=== PATIENT | male | born 1965 | race Caucasian/White ===

== ENCOUNTER 2023-06-14 18:48 | Inpatient (IN) | payer MEDICARE, OTHER ==
[~2023-06-14] VITALS: Ht 177.8 cm; Wt 98.0 kg
[2023-06-14] MEDS ORDERED: INSU100I26 SQ (20:24)
[2023-06-14] MEDS ORDERED: LEVO88TA5 PO (20:24)
[2023-06-14] MEDS ORDERED: BENZ1TAB7 PO (20:24)
[2023-06-14] MEDS ORDERED: GLIM4TAB37 PO (20:24)
[2023-06-14] MEDS ORDERED: FURO20TA4 PO (20:24)
[2023-06-14] MEDS ORDERED: ALLO300T2 PO (20:24)
[2023-06-14] MEDS ORDERED: METF-442 PO (20:24)
[2023-06-14] MEDS ORDERED: ENAL5TAB21 PO (20:24)
[2023-06-14] MEDS ORDERED: DOCU100T2 PO (20:24)
[2023-06-14] MEDS ORDERED: SPIR25TA6 PO (20:24)
[2023-06-14] MEDS ORDERED: DIVA-78 PO (20:24)
[2023-06-14] MEDS ORDERED: ATOR40TA PO (20:24)
[2023-06-14] MEDS ORDERED: CHOL100045 PO (20:24)
[2023-06-14] MEDS ORDERED: POLY17PO4 PO (20:24)
[2023-06-14] MEDS ORDERED: EMPA10TA PO (20:24)
[2023-06-14] MEDS ORDERED: ALBU6.7H9 IH (20:24)
[2023-06-14] MEDS ORDERED: EMPA25TA PO (20:24)
[2023-06-14 21:02] LABS: BASOPHILS % (AUTO) 0.3 % (0.0-2.0); EOSINOPHILS # (AUTO) 0.1 K/uL (0.0-0.7); EOSINOPHILS % (AUTO) 1.3 % (0.0-7.0); HEMATOCRIT 44.5 % (36.7-47.1); HEMOGLOBIN 15.2 g/dL (12.5-16.3); LYMPHOCYTES # (AUTO) 3.4 K/uL (0.8-4.8); LYMPHOCYTES % (AUTO) 33.8 % (20.5-51.5); MEAN CORPUSCULAR HEMOGLOBIN 30.2 uug (23.8-33.4); MEAN CORPUSCULAR HGB CONC 34 g/dL (32.5-36.3); MEAN CORPUSCULAR VOLUME 88.6 fL (73.0-96.2); MONOCYTES # (AUTO) 0.5 K/uL (0.1-1.30); MONOCYTES % (AUTO) 5.1 % (0.0-11.0); NEUTROPHILS % (AUTO) 59.5 % (38.5-71.5); PLATELET COUNT (AUTO) 211 K/uL (152-348); RED BLOOD CELL COUNT(AUTO) 5.02 MIL/uL (4.06-5.63); RED CELL DISTRIBUTION WIDTH 13.5 % (12.1-16.2); WHITE BLOOD COUNT (AUTO) 10.1 K/uL (3.6-10.2)
[2023-06-14 21:21] LABS: DIFFERENTIAL COMMENT 1
[2023-06-14 21:22] LABS: CALCIUM 9.4 mg/dL (8.5-10.1); CARBON DIOXIDE 27 mmol/L (21-32); CHLORIDE 103 mmol/L (98-107); CREATININE 0.8 mg/dL (0.6-1.3); GLUCOSE 168 mg/dL (74-106); POTASSIUM 3.6 mmol/L (3.5-5.1); SODIUM SERUM 139 mmol/L (136-145); UREA NITROGEN, BLOOD 14 mg/dL (7-18)
[2023-06-14 21:24] LABS: ETHANOL < 3 MG/DL (0-10)
[2023-06-14 21:34] LABS: ALANINE AMINOTRANSFERASE 23 U/L (16-63); ALBUMIN 3.6 g/dL (3.4-5.0); ALKALINE PHOSPHATASE 86 U/L (50-136); ASPARTATE AMINOTRANSFERASE < 5 U/L (15-37); BILIRUBIN,TOTAL 0.2 mg/dL (0.2-1.0); TOTAL PROTEIN, SERUM 6.7 g/dL (6.4-8.2)
[2023-06-14 21:35] LABS: ACETAMINOPHEN < 10.0 ug/mL (10-30)
[2023-06-14 23:57] LABS: *BILIRUBIN,URIN NEGATIVE (NEGATIVE); *BLOOD, URINE NEGATIVE (NEGATIVE); *CLARITY,URINE CLEAR (CLEAR); *COLOR,URINE YELLOW (YELLOW); *KETONES,URINE NEGATIVE (NEGATIVE); *PROTEIN,URINE NEGATIVE (NEGATIVE); *UROBILINOGEN,URINE 0.2 E.U./dl (NORMAL); LEUKOCYTE ESTERASE ,URINE NEGATIVE (NEGATIVE); NITRITE, URINE NEGATIVE (NEGATIVE)
[2023-06-15 00:02] LABS: *AMPHETAMINE, URINE NEGATIVE (NEGATIVE); *BARBITURATE, URINE NEGATIVE (NEGATIVE); *BENZODIAZEPINE, URINE NEGATIVE (NEGATIVE); *CANNABINOID, URINE NEGATIVE (NEGATIVE); *COCCAINE, URINE NEGATIVE (NEGATIVE); *OPIATE, URINE NEGATIVE (NEGATIVE); *PHENCYCLIDINE SCREEN,URINE NEGATIVE (NEGATIVE)
[2023-06-15 00:07] LABS: UGLUCOSE 2+ (NEGATIVE)
[2023-06-15 00:08] LABS: FENTANYL, URINE NEGATIVE (NEGATIVE)
[2023-06-15 01:06] LABS: BACTERIA,URINE FEW /HPF (NONE SEEN); RBC,URINE NONE SEEN /HPF (0-3); WBC,URINE NONE SEEN /HPF (0-3)
[2023-06-15 01:07] LABS: SQUAMOUS EPITHELIAL CELL,UR FEW /HPF (NONE SEEN)
[2023-06-15 01:10] VITALS: BP 122/77; TEMP 97.9; O2SAT 97
[2023-06-15] MEDS ORDERED: MAGNESIUM HYDROXIDE 30 ML LIQUID UDC PO PRN (03:00)
[2023-06-15] MEDS ORDERED: ACETAMINOPHEN 325 MG TABLET PO PRN (03:00)
[2023-06-15] MEDS ORDERED: MAG HYDROX/AL HYDROX/SIMETH 30 ML LIQUID UDC PO PRN (03:00)
[2023-06-15] MEDS ORDERED: LORAZEPAM 2 MG/1 ML VIAL IM STA (06:23)
[2023-06-15] MEDS ORDERED: diphenhydrAMINE 50 MG/1 ML VIAL IM STA (06:23)
[2023-06-15] MEDS ORDERED: HALOPERIDOL LACTATE 5 MG/1 ML VIAL IM STA (06:23)
[2023-06-15 08:06] VITALS: BP 118/66; TEMP 98.4; O2SAT 95
[2023-06-15 15:13] VITALS: BP 130/72; TEMP 98.5; O2SAT 100
[2023-06-15] MEDS ORDERED: MIRALAX 17 GM POWD.PACK PO PRN (17:45)
[2023-06-15] MEDS ORDERED: ALBUTEROL SULFATE 8 GM HFA.AER.AD IH PRN (17:45)
[2023-06-15] MEDS ORDERED: DEXTROSE 50% 50 ML DISP.SYRIN IV PRN (18:00)
[2023-06-15] MEDS ORDERED: ALBUTEROL SULFATE 2.5 MG/3 ML NEBU NEB PRN (19:00)
[2023-06-15] MEDS: GLIMEPIRIDE 4 MG TABLET PO SCH (19:10)
[2023-06-15] MEDS: METFORMIN HCL 500 MG TABLET PO SCH (19:10)
[2023-06-15 20:00] VITALS: BP 113/85; TEMP 98.1; O2SAT 99
[2023-06-15] MEDS: BLOOD SUGAR DIAGNOSTIC 1 EACH STRIP VI SCH (20:26)
[2023-06-15] MEDS: DIVALPROEX 500 MG TABLET.DR PO SCH (20:27)
[2023-06-15] MEDS: DOCUSATE SODIUM 100 MG CAPSULE PO SCH (20:27)
[2023-06-15] MEDS: INSULIN REGULAR, HUMAN 300 UNIT/3 ML VIAL SQ PRN (20:31)
[2023-06-15] MEDS ORDERED: ATORVASTATIN 40 MG TABLET PO SCH (21:00)
[2023-06-16] MEDS: LEVOTHYROXINE SODIUM 88 MCG TABLET PO SCH (06:08)
[2023-06-16] MEDS: BLOOD SUGAR DIAGNOSTIC 1 EACH STRIP VI SCH ×4 (06:23→20:18)
[2023-06-16] MEDS: FUROSEMIDE 20 MG TABLET PO SCH ×2 (08:19→16:52)
[2023-06-16] MEDS: METFORMIN HCL 500 MG TABLET PO SCH ×2 (08:19→17:10)
[2023-06-16] MEDS: ARIPIPRAZOLE 10 MG TABLET PO SCH (08:19)
[2023-06-16] MEDS: INSULIN REGULAR, HUMAN 300 UNIT/3 ML VIAL SQ PRN ×3 (08:22→20:21)
[2023-06-16] MEDS: GLIMEPIRIDE 4 MG TABLET PO SCH ×2 (08:24→16:52)
[2023-06-16] MEDS: ENALAPRIL 5 MG TABLET PO SCH (08:24)
[2023-06-16] MEDS: ALLOPURINOL 300 MG TABLET PO SCH (08:24)
[2023-06-16] MEDS: SPIRONOLACTONE 50 MG TABLET PO SCH (08:26)
[2023-06-16 08:39] LABS: BASOPHILS % (AUTO) 0.2 % (0.0-2.0); EOSINOPHILS # (AUTO) 0.1 K/uL (0.0-0.7); EOSINOPHILS % (AUTO) 1.3 % (0.0-7.0); HEMATOCRIT 47.8 % (36.7-47.1); HEMOGLOBIN 15.9 g/dL (12.5-16.3); LYMPHOCYTES # (AUTO) 2.7 K/uL (0.8-4.8); LYMPHOCYTES % (AUTO) 41.7 % (20.5-51.5); MEAN CORPUSCULAR HEMOGLOBIN 29.7 uug (23.8-33.4); MEAN CORPUSCULAR HGB CONC 33 g/dL (32.5-36.3); MONOCYTES # (AUTO) 0.3 K/uL (0.1-1.30); MONOCYTES % (AUTO) 4.3 % (0.0-11.0); NEUTROPHILS # (AUTO) 3.3 K/uL (1.8-8.9); NEUTROPHILS % (AUTO) 52.5 % (38.5-71.5); PLATELET COUNT (AUTO) 197 K/uL (152-348); RED BLOOD CELL COUNT(AUTO) 5.37 MIL/uL (4.06-5.63); RED CELL DISTRIBUTION WIDTH 13.5 % (12.1-16.2); WHITE BLOOD COUNT (AUTO) 6.4 K/uL (3.6-10.2)
[2023-06-16 08:41] VITALS: BP 116/66; TEMP 98.1; O2SAT 98
[2023-06-16 08:56] LABS: ALBUMIN 3.7 g/dL (3.4-5.0); BILIRUBIN,TOTAL 0.4 mg/dL (0.2-1.0); CALCIUM 9.3 mg/dL (8.5-10.1); POTASSIUM 4.5 mmol/L (3.5-5.1); TOTAL PROTEIN, SERUM 7.4 g/dL (6.4-8.2)
[2023-06-16 09:02] LABS: THYROID STIMULATING HORMONE 1.945 mIU/mL (0.358-3.740)
[2023-06-16 09:05] LABS: DIFFERENTIAL COMMENT 1
[2023-06-16 09:23] LABS: PHOSPHOROUS 3.2 mg/dL (2.5-4.9); URIC ACID 4.2 mg/dL (3.5-7.2)
[2023-06-16 16:00] VITALS: BP 130/78; TEMP 97.8; O2SAT 99
[2023-06-16 20:08] VITALS: BP 130/75; TEMP 97.9; O2SAT 97
[2023-06-16] MEDS: DOCUSATE SODIUM 100 MG CAPSULE PO SCH (20:10)
[2023-06-16] MEDS: ATORVASTATIN 20 MG TABLET PO SCH (20:11)
[2023-06-16] MEDS: DIVALPROEX 500 MG TABLET.DR PO SCH (20:11)
[2023-06-17] MEDS: LEVOTHYROXINE SODIUM 88 MCG TABLET PO SCH (06:52)
[2023-06-17] MEDS: BLOOD SUGAR DIAGNOSTIC 1 EACH STRIP VI SCH ×4 (07:11→21:08)
[2023-06-17 07:58] VITALS: BP 106/57; TEMP 98.2; O2SAT 98
[2023-06-17] MEDS: ARIPIPRAZOLE 10 MG TABLET PO SCH (09:00)
[2023-06-17] MEDS: FUROSEMIDE 20 MG TABLET PO SCH ×2 (09:36→17:14)
[2023-06-17] MEDS: ALLOPURINOL 300 MG TABLET PO SCH (09:37)
[2023-06-17] MEDS: SPIRONOLACTONE 50 MG TABLET PO SCH (09:37)
[2023-06-17] MEDS: GLIMEPIRIDE 4 MG TABLET PO SCH ×2 (09:39→17:15)
[2023-06-17] MEDS: METFORMIN HCL 500 MG TABLET PO SCH ×2 (09:42→17:14)
[2023-06-17] MEDS: ENALAPRIL 5 MG TABLET PO SCH (09:43)
[2023-06-17] MEDS: INSULIN REGULAR, HUMAN 300 UNIT/3 ML VIAL SQ PRN ×3 (09:46→21:13)
[2023-06-17 16:25] VITALS: BP 107/58; TEMP 98.1; O2SAT 98
[2023-06-17 20:01] VITALS: BP 121/72; TEMP 98.1; O2SAT 96
[2023-06-17] MEDS: DOCUSATE SODIUM 100 MG CAPSULE PO SCH (20:50)
[2023-06-17] MEDS: ATORVASTATIN 20 MG TABLET PO SCH (20:51)
[2023-06-17] MEDS: DIVALPROEX 500 MG TABLET.DR PO SCH (20:51)
[2023-06-18] MEDS: LEVOTHYROXINE SODIUM 88 MCG TABLET PO SCH (07:06)
[2023-06-18] MEDS: BLOOD SUGAR DIAGNOSTIC 1 EACH STRIP VI SCH ×4 (07:34→20:16)
[2023-06-18 07:42] VITALS: BP 113/60; TEMP 98; O2SAT 99
[2023-06-18] MEDS: SPIRONOLACTONE 50 MG TABLET PO SCH (08:43)
[2023-06-18] MEDS: METFORMIN HCL 500 MG TABLET PO SCH ×2 (08:43→17:46)
[2023-06-18] MEDS: FUROSEMIDE 20 MG TABLET PO SCH ×2 (08:44→17:05)
[2023-06-18] MEDS: ARIPIPRAZOLE 10 MG TABLET PO SCH (08:44)
[2023-06-18] MEDS: ALLOPURINOL 300 MG TABLET PO SCH (08:46)
[2023-06-18] MEDS: GLIMEPIRIDE 4 MG TABLET PO SCH ×2 (08:46→17:05)
[2023-06-18] MEDS: ENALAPRIL 5 MG TABLET PO SCH (08:49)
[2023-06-18] MEDS: INSULIN REGULAR, HUMAN 300 UNIT/3 ML VIAL SQ PRN ×3 (08:51→20:34)
[2023-06-18 15:37] VITALS: BP 111/63; TEMP 97.6; O2SAT 96
[2023-06-18 20:11] VITALS: BP 130/63; TEMP 98; O2SAT 96
[2023-06-18] MEDS: INSULIN GLARGINE,HUM 300 UNITS/3 ML CARTRIDGE SQ SCH (20:27)
[2023-06-18] MEDS: DOCUSATE SODIUM 100 MG CAPSULE PO SCH (20:28)
[2023-06-18] MEDS: ATORVASTATIN 20 MG TABLET PO SCH (20:28)
[2023-06-18] MEDS: DIVALPROEX 500 MG TABLET.DR PO SCH (20:28)
[2023-06-19] MEDS: TEMAZEPAM 7.5 MG CAPSULE PO PRN ×2 (00:11→21:56)
[2023-06-19] MEDS: LEVOTHYROXINE SODIUM 88 MCG TABLET PO SCH (06:26)
[2023-06-19] MEDS: BLOOD SUGAR DIAGNOSTIC 1 EACH STRIP VI SCH ×4 (06:28→20:18)
[2023-06-19 07:49] VITALS: BP 107/50; TEMP 98.4; O2SAT 99
[2023-06-19] MEDS: ENALAPRIL 5 MG TABLET PO SCH (09:00)
[2023-06-19] MEDS: FUROSEMIDE 20 MG TABLET PO SCH ×2 (09:14→18:02)
[2023-06-19] MEDS: ARIPIPRAZOLE 10 MG TABLET PO SCH (09:14)
[2023-06-19] MEDS: GLIMEPIRIDE 4 MG TABLET PO SCH ×2 (09:14→18:03)
[2023-06-19] MEDS: SPIRONOLACTONE 50 MG TABLET PO SCH (09:14)
[2023-06-19] MEDS: ALLOPURINOL 300 MG TABLET PO SCH (09:15)
[2023-06-19] MEDS: METFORMIN HCL 500 MG TABLET PO SCH ×2 (09:18→18:02)
[2023-06-19] MEDS: INSULIN REGULAR, HUMAN 300 UNIT/3 ML VIAL SQ PRN ×4 (09:21→20:31)
[2023-06-19] MEDS ORDERED: LORAZEPAM 2 MG/1 ML VIAL IM ONE (11:30)
[2023-06-19] MEDS ORDERED: HALOPERIDOL LACTATE 5 MG/1 ML VIAL IM ONE (11:30)
[2023-06-19] MEDS ORDERED: diphenhydrAMINE 50 MG/1 ML VIAL IM ONE (11:30)
[2023-06-19 15:50] VITALS: BP 124/74; TEMP 98.4; O2SAT 98
[2023-06-19 20:00] VITALS: BP 119/56; TEMP 97.5; O2SAT 97
[2023-06-19] MEDS: DOCUSATE SODIUM 100 MG CAPSULE PO SCH (20:21)
[2023-06-19] MEDS: DIVALPROEX 500 MG TABLET.DR PO SCH (20:21)
[2023-06-19] MEDS: ATORVASTATIN 20 MG TABLET PO SCH (20:21)
[2023-06-19] MEDS: INSULIN GLARGINE,HUM 300 UNITS/3 ML CARTRIDGE SQ SCH (20:29)
[2023-06-20] MEDS: BLOOD SUGAR DIAGNOSTIC 1 EACH STRIP VI SCH ×4 (06:33→20:08)
[2023-06-20] MEDS: LEVOTHYROXINE SODIUM 88 MCG TABLET PO SCH (06:33)
[2023-06-20 08:02] VITALS: BP 103/58; TEMP 98.2; O2SAT 99
[2023-06-20] MEDS: SPIRONOLACTONE 50 MG TABLET PO SCH (08:51)
[2023-06-20] MEDS: METFORMIN HCL 500 MG TABLET PO SCH ×2 (08:51→17:09)
[2023-06-20] MEDS: ARIPIPRAZOLE 10 MG TABLET PO SCH (08:51)
[2023-06-20] MEDS: ENALAPRIL 5 MG TABLET PO SCH (08:52)
[2023-06-20] MEDS: GLIMEPIRIDE 4 MG TABLET PO SCH ×2 (08:52→17:09)
[2023-06-20] MEDS: FUROSEMIDE 20 MG TABLET PO SCH ×2 (08:52→17:09)
[2023-06-20] MEDS: ALLOPURINOL 300 MG TABLET PO SCH (08:53)
[2023-06-20] MEDS: INSULIN REGULAR, HUMAN 300 UNIT/3 ML VIAL SQ PRN ×4 (09:02→20:24)
[2023-06-20] MEDS: CLONAZEPAM 0.5 MG TABLET PO PRN ×2 (15:26→21:43)
[2023-06-20 15:36] VITALS: BP 110/61; TEMP 97.6; O2SAT 97
[2023-06-20] MEDS: PROTEIN SUPPLEMENT (PROSTAT) 30 ML LIQUID PO SCH (17:34)
[2023-06-20 20:00] VITALS: BP 101/50; TEMP 98; O2SAT 95
[2023-06-20] MEDS: DIVALPROEX 500 MG TABLET.DR PO SCH (20:19)
[2023-06-20] MEDS: ATORVASTATIN 20 MG TABLET PO SCH (20:19)
[2023-06-20] MEDS: DOCUSATE SODIUM 100 MG CAPSULE PO SCH (20:19)
[2023-06-20] MEDS: INSULIN GLARGINE,HUM 300 UNITS/3 ML CARTRIDGE SQ SCH (20:23)
[2023-06-20] MEDS: TEMAZEPAM 7.5 MG CAPSULE PO PRN (22:53)
[2023-06-21] MEDS: LEVOTHYROXINE SODIUM 88 MCG TABLET PO SCH (06:26)
[2023-06-21] MEDS: BLOOD SUGAR DIAGNOSTIC 1 EACH STRIP VI SCH ×4 (06:29→20:32)
[2023-06-21] MEDS: ENALAPRIL 5 MG TABLET PO SCH (08:19)
[2023-06-21] MEDS: METFORMIN HCL 500 MG TABLET PO SCH ×2 (08:19→17:30)
[2023-06-21] MEDS: GLIMEPIRIDE 4 MG TABLET PO SCH ×2 (08:20→17:31)
[2023-06-21] MEDS: ALLOPURINOL 300 MG TABLET PO SCH (08:20)
[2023-06-21] MEDS: FUROSEMIDE 20 MG TABLET PO SCH ×2 (08:38→17:31)
[2023-06-21] MEDS: SPIRONOLACTONE 50 MG TABLET PO SCH (08:39)
[2023-06-21] MEDS: PROTEIN SUPPLEMENT (PROSTAT) 30 ML LIQUID PO SCH ×2 (08:40→17:32)
[2023-06-21] MEDS: INSULIN REGULAR, HUMAN 300 UNIT/3 ML VIAL SQ PRN ×4 (08:42→20:36)
[2023-06-21 08:55] VITALS: BP 129/79; TEMP 98; O2SAT 99
[2023-06-21] MEDS ORDERED: ARIPIPRAZOLE 10 MG TABLET PO SCH (09:00)
[2023-06-21] MEDS ORDERED: ARIPIPRAZOLE 2 MG TABLET PO SCH ×2 (09:00)
[2023-06-21] MEDS: ARIPIPRAZOLE 10 MG TABLET PO SCH (09:42)
[2023-06-21] MEDS: CLONAZEPAM 0.5 MG TABLET PO PRN (09:59)
[2023-06-21 15:30] VITALS: BP 106/57; TEMP 98.2; O2SAT 98
[2023-06-21 20:00] VITALS: BP 120/61; TEMP 97.7; O2SAT 98
[2023-06-21] MEDS: DIVALPROEX 500 MG TABLET.DR PO SCH (20:31)
[2023-06-21] MEDS: DOCUSATE SODIUM 100 MG CAPSULE PO SCH (20:31)
[2023-06-21] MEDS: ATORVASTATIN 20 MG TABLET PO SCH (20:31)
[2023-06-21] MEDS: INSULIN GLARGINE,HUM 300 UNITS/3 ML CARTRIDGE SQ SCH (20:42)
[2023-06-22] MEDS: LEVOTHYROXINE SODIUM 88 MCG TABLET PO SCH (06:33)
[2023-06-22] MEDS: BLOOD SUGAR DIAGNOSTIC 1 EACH STRIP VI SCH ×4 (06:33→20:11)
[2023-06-22 07:46] VITALS: BP 117/61; TEMP 97.8; O2SAT 98
[2023-06-22] MEDS: METFORMIN HCL 500 MG TABLET PO SCH ×2 (07:55→17:13)
[2023-06-22] MEDS: SPIRONOLACTONE 50 MG TABLET PO SCH (08:02)
[2023-06-22] MEDS: ENALAPRIL 5 MG TABLET PO SCH (08:02)
[2023-06-22] MEDS: FUROSEMIDE 20 MG TABLET PO SCH ×2 (08:02→16:44)
[2023-06-22] MEDS: GLIMEPIRIDE 4 MG TABLET PO SCH ×2 (08:06→16:44)
[2023-06-22] MEDS: ALLOPURINOL 300 MG TABLET PO SCH (08:07)
[2023-06-22] MEDS: PROTEIN SUPPLEMENT (PROSTAT) 30 ML LIQUID PO SCH ×2 (08:07→16:45)
[2023-06-22] MEDS: ARIPIPRAZOLE 10 MG TABLET PO SCH (08:44)
[2023-06-22] MEDS: CLONAZEPAM 0.5 MG TABLET PO PRN ×2 (09:31→15:50)
[2023-06-22] MEDS: INSULIN REGULAR, HUMAN 300 UNIT/3 ML VIAL SQ PRN ×3 (12:19→21:00)
[2023-06-22 16:13] VITALS: BP 145/94; TEMP 97.9; O2SAT 98
[2023-06-22 20:00] VITALS: BP 109/59; TEMP 98; O2SAT 98
[2023-06-22] MEDS: DOCUSATE SODIUM 100 MG CAPSULE PO SCH (20:16)
[2023-06-22] MEDS: ATORVASTATIN 20 MG TABLET PO SCH (20:17)
[2023-06-22] MEDS: DIVALPROEX 500 MG TABLET.DR PO SCH (20:17)
[2023-06-22] MEDS: INSULIN GLARGINE,HUM 300 UNITS/3 ML CARTRIDGE SQ SCH (20:41)
[2023-06-22] MEDS: TEMAZEPAM 7.5 MG CAPSULE PO PRN (23:52)
[2023-06-23] MEDS: BLOOD SUGAR DIAGNOSTIC 1 EACH STRIP VI SCH ×4 (06:28→20:40)
[2023-06-23] MEDS: LEVOTHYROXINE SODIUM 88 MCG TABLET PO SCH (06:31)
[2023-06-23 07:59] VITALS: BP 110/58; TEMP 98.1; O2SAT 98
[2023-06-23] MEDS: METFORMIN HCL 500 MG TABLET PO SCH ×2 (08:21→17:33)
[2023-06-23] MEDS: FUROSEMIDE 20 MG TABLET PO SCH ×2 (08:21→17:33)
[2023-06-23] MEDS: ARIPIPRAZOLE 10 MG TABLET PO SCH (08:22)
[2023-06-23] MEDS: SPIRONOLACTONE 50 MG TABLET PO SCH (08:22)
[2023-06-23] MEDS: GLIMEPIRIDE 4 MG TABLET PO SCH ×2 (08:24→17:33)
[2023-06-23] MEDS: ALLOPURINOL 300 MG TABLET PO SCH (08:24)
[2023-06-23] MEDS: ENALAPRIL 5 MG TABLET PO SCH (08:24)
[2023-06-23] MEDS: INSULIN REGULAR, HUMAN 300 UNIT/3 ML VIAL SQ PRN ×3 (08:27→20:43)
[2023-06-23] MEDS: PROTEIN SUPPLEMENT (PROSTAT) 30 ML LIQUID PO SCH ×2 (09:00→17:00)
[2023-06-23 16:07] VITALS: BP 97/54; TEMP 98; O2SAT 97
[2023-06-23 20:00] VITALS: BP 91/50; TEMP 97.7; O2SAT 96
[2023-06-23] MEDS: ATORVASTATIN 20 MG TABLET PO SCH (20:39)
[2023-06-23] MEDS: DOCUSATE SODIUM 100 MG CAPSULE PO SCH (20:39)
[2023-06-23] MEDS: DIVALPROEX 500 MG TABLET.DR PO SCH (20:40)
[2023-06-23] MEDS: INSULIN GLARGINE,HUM 300 UNITS/3 ML CARTRIDGE SQ SCH (20:47)
[2023-06-24] MEDS: BLOOD SUGAR DIAGNOSTIC 1 EACH STRIP VI SCH ×4 (06:53→20:21)
[2023-06-24] MEDS: LEVOTHYROXINE SODIUM 88 MCG TABLET PO SCH (06:53)
[2023-06-24 07:53] VITALS: BP 117/63; TEMP 98.3; O2SAT 97
[2023-06-24] MEDS: ARIPIPRAZOLE 10 MG TABLET PO SCH (08:34)
[2023-06-24] MEDS: FUROSEMIDE 20 MG TABLET PO SCH ×2 (08:35→16:35)
[2023-06-24] MEDS: SPIRONOLACTONE 50 MG TABLET PO SCH (08:35)
[2023-06-24] MEDS: METFORMIN HCL 500 MG TABLET PO SCH ×2 (08:35→17:07)
[2023-06-24] MEDS: GLIMEPIRIDE 4 MG TABLET PO SCH ×2 (08:38→16:35)
[2023-06-24] MEDS: PROTEIN SUPPLEMENT (PROSTAT) 30 ML LIQUID PO SCH ×2 (08:38→16:36)
[2023-06-24] MEDS: ENALAPRIL 5 MG TABLET PO SCH (08:39)
[2023-06-24] MEDS: ALLOPURINOL 300 MG TABLET PO SCH (08:39)
[2023-06-24] MEDS: INSULIN REGULAR, HUMAN 300 UNIT/3 ML VIAL SQ PRN ×4 (08:47→20:24)
[2023-06-24 16:05] VITALS: BP 116/62; TEMP 98.1; O2SAT 97
[2023-06-24 20:00] VITALS: BP 125/65; TEMP 97.7; O2SAT 98
[2023-06-24] MEDS: DOCUSATE SODIUM 100 MG CAPSULE PO SCH (20:11)
[2023-06-24] MEDS: DIVALPROEX 500 MG TABLET.DR PO SCH (20:11)
[2023-06-24] MEDS: ATORVASTATIN 20 MG TABLET PO SCH (20:11)
[2023-06-24] MEDS: INSULIN GLARGINE,HUM 300 UNITS/3 ML CARTRIDGE SQ SCH (20:23)
[2023-06-25] MEDS: LEVOTHYROXINE SODIUM 88 MCG TABLET PO SCH (06:31)
[2023-06-25] MEDS: BLOOD SUGAR DIAGNOSTIC 1 EACH STRIP VI SCH ×4 (06:32→20:53)
[2023-06-25 07:53] VITALS: BP 123/66; TEMP 98.2; O2SAT 99
[2023-06-25] MEDS: INSULIN REGULAR, HUMAN 300 UNIT/3 ML VIAL SQ PRN ×3 (08:58→20:54)
[2023-06-25] MEDS: ARIPIPRAZOLE 10 MG TABLET PO SCH (08:59)
[2023-06-25] MEDS: ENALAPRIL 5 MG TABLET PO SCH (09:00)
[2023-06-25] MEDS: ALLOPURINOL 300 MG TABLET PO SCH (09:00)
[2023-06-25] MEDS: FUROSEMIDE 20 MG TABLET PO SCH ×2 (09:00→17:45)
[2023-06-25] MEDS: METFORMIN HCL 500 MG TABLET PO SCH ×2 (09:00→17:45)
[2023-06-25] MEDS: SPIRONOLACTONE 50 MG TABLET PO SCH (09:00)
[2023-06-25] MEDS: GLIMEPIRIDE 4 MG TABLET PO SCH ×2 (09:00→17:45)
[2023-06-25] MEDS: PROTEIN SUPPLEMENT (PROSTAT) 30 ML LIQUID PO SCH ×2 (09:01→17:49)
[2023-06-25 15:19] VITALS: BP 127/70; TEMP 97.8; O2SAT 99
[2023-06-25 20:00] VITALS: BP 114/58; TEMP 98.2; O2SAT 97
[2023-06-25] MEDS: DOCUSATE SODIUM 100 MG CAPSULE PO SCH (20:55)
[2023-06-25] MEDS: ATORVASTATIN 20 MG TABLET PO SCH (20:55)
[2023-06-25] MEDS: DIVALPROEX 500 MG TABLET.DR PO SCH (20:55)
[2023-06-25] MEDS: INSULIN GLARGINE,HUM 300 UNITS/3 ML CARTRIDGE SQ SCH (20:55)
[2023-06-25] MEDS ORDERED: HALOPERIDOL LACTATE 5 MG/1 ML VIAL IM ONE (23:30)
[2023-06-25] MEDS ORDERED: LORAZEPAM 2 MG/1 ML VIAL IM ONE (23:30)
[2023-06-25] MEDS ORDERED: diphenhydrAMINE 50 MG/1 ML VIAL IM ONE (23:30)
[2023-06-26] MEDS: LEVOTHYROXINE SODIUM 88 MCG TABLET PO SCH (06:09)
[2023-06-26] MEDS: BLOOD SUGAR DIAGNOSTIC 1 EACH STRIP VI SCH ×4 (07:54→20:20)
[2023-06-26 07:59] VITALS: BP 118/60; TEMP 98.2; O2SAT 98
[2023-06-26] MEDS: GLIMEPIRIDE 4 MG TABLET PO SCH ×2 (08:21→17:35)
[2023-06-26] MEDS: ALLOPURINOL 300 MG TABLET PO SCH (08:21)
[2023-06-26] MEDS: ARIPIPRAZOLE 10 MG TABLET PO SCH (08:22)
[2023-06-26] MEDS: SPIRONOLACTONE 50 MG TABLET PO SCH (08:23)
[2023-06-26] MEDS: FUROSEMIDE 20 MG TABLET PO SCH ×2 (08:23→17:32)
[2023-06-26] MEDS: METFORMIN HCL 500 MG TABLET PO SCH ×2 (08:23→17:33)
[2023-06-26] MEDS: INSULIN REGULAR, HUMAN 300 UNIT/3 ML VIAL SQ PRN ×3 (08:27→20:21)
[2023-06-26] MEDS: ENALAPRIL 5 MG TABLET PO SCH (09:00)
[2023-06-26] MEDS: PROTEIN SUPPLEMENT (PROSTAT) 30 ML LIQUID PO SCH ×2 (09:06→17:00)
[2023-06-26 15:10] VITALS: BP 106/58; TEMP 98; O2SAT 98
[2023-06-26 20:17] VITALS: BP 137/75; TEMP 98.2; O2SAT 97
[2023-06-26] MEDS: INSULIN GLARGINE,HUM 300 UNITS/3 ML CARTRIDGE SQ SCH (20:25)
[2023-06-26] MEDS: ATORVASTATIN 20 MG TABLET PO SCH (20:25)
[2023-06-26] MEDS: DOCUSATE SODIUM 100 MG CAPSULE PO SCH (20:25)
[2023-06-26] MEDS: DIVALPROEX 500 MG TABLET.DR PO SCH (20:25)
[2023-06-26] MEDS ORDERED: INSULIN GLARGINE,HUM 300 UNITS/3 ML CARTRIDGE SQ SCH (21:00)
[2023-06-27] MEDS: TEMAZEPAM 7.5 MG CAPSULE PO PRN (01:07)
[2023-06-27] MEDS: LEVOTHYROXINE SODIUM 88 MCG TABLET PO SCH (06:05)
[2023-06-27] MEDS: BLOOD SUGAR DIAGNOSTIC 1 EACH STRIP VI SCH (06:06)
[2023-06-27] MEDS: FUROSEMIDE 20 MG TABLET PO SCH (08:45)
[2023-06-27 08:47] VITALS: BP 145/72; TEMP 98.4; O2SAT 99
[2023-06-27] MEDS: METFORMIN HCL 500 MG TABLET PO SCH (08:47)
[2023-06-27] MEDS: ARIPIPRAZOLE 10 MG TABLET PO SCH (08:47)
[2023-06-27] MEDS: ALLOPURINOL 300 MG TABLET PO SCH (08:47)
[2023-06-27 08:48] VITALS: BP 143/72
[2023-06-27] MEDS: ENALAPRIL 5 MG TABLET PO SCH (08:48)
[2023-06-27] MEDS: GLIMEPIRIDE 4 MG TABLET PO SCH (08:49)
[2023-06-27] MEDS: PROTEIN SUPPLEMENT (PROSTAT) 30 ML LIQUID PO SCH (08:51)
[2023-06-27] MEDS: INSULIN REGULAR, HUMAN 300 UNIT/3 ML VIAL SQ PRN (08:55)
[2023-06-27] MEDS: SPIRONOLACTONE 50 MG TABLET PO SCH (10:28)
== END 2023-06-27 13:18 | DRG 885 ==
LOC: ER 18:48 → GPS 06-15 00:10
PROVIDERS: ADMIT Psychiatry & Neurology Psychiatry; ATTEND Internal Medicine
DX: F20.0 Paranoid schizophrenia (principal); J44.89 Other specified chronic obstructive pulmonary disease; I11.0 Hypertensive heart disease with heart failure; E11.65 Type 2 diabetes mellitus with hyperglycemia; I50.32 Chronic diastolic (congestive) heart failure; F39 Unspecified mood [affective] disorder; G40.909 Epilepsy, unspecified, not intractable, without status epilepticus; E03.9 Hypothyroidism, unspecified; E66.9 Obesity, unspecified; E78.5 Hyperlipidemia, unspecified; F32.9 Major depressive disorder, single episode, unspecified; M19.90 Unspecified osteoarthritis, unspecified site; Z20.822 Contact with and (suspected) exposure to COVID-19; F29 Unspecified psychosis not due to a substance or known physiological condition; Z87.891 Personal history of nicotine dependence; Z91.199 Patient's noncompliance with other medical treatment and regimen due to unspecified reason; M10.9 Gout, unspecified; G89.29 Other chronic pain; Z68.31 Body mass index [BMI] 31.0-31.9, adult; Z79.84 Long term (current) use of oral hypoglycemic drugs
CPT/HCPCS: 36415; 80164; 83735; 84100; 84443; 84550; 85025; G0480; J1200; J1630; J1815; J2060

== ENCOUNTER 2023-07-15 11:55 | Inpatient (IN) | payer MEDICARE, OTHER ==
[~2023-07-15] VITALS: Ht 172.7 cm; Wt 102.5 kg
[~2023-07-15 11:55] MED LIST: ALBU6.7H9 IH; ALLO300T2 PO; ATOR40TA PO; BENZ1TAB7 PO; CHOL100045 PO; DIVA-78 PO; DOCU100T2 PO; EMPA10TA PO; EMPA25TA PO; ENAL5TAB21 PO; FURO20TA4 PO; GLIM4TAB37 PO; INSU100I26 SQ; LEVO88TA5 PO; METF-442 PO; POLY17PO4 PO; SPIR25TA6 PO
[2023-07-15] MEDS ORDERED: GLUC1KIT IM (12:56)
[2023-07-15] MEDS ORDERED: INSU100V28 SQ (12:56)
[2023-07-15] MEDS ORDERED: ARIP10TA9 PO (12:56)
[2023-07-15] MEDS ORDERED: CLON0.5T4 PO (12:56)
[2023-07-15 13:19] LABS: BASOPHILS % (AUTO) 0.5 % (0.0-2.0); EOSINOPHILS # (AUTO) 0.1 K/uL (0.0-0.7); EOSINOPHILS % (AUTO) 1.6 % (0.0-7.0); HEMATOCRIT 37.3 % (36.7-47.1); HEMOGLOBIN 12.7 g/dL (12.5-16.3); LYMPHOCYTES # (AUTO) 2.7 K/uL (0.8-4.8); LYMPHOCYTES % (AUTO) 44.4 % (20.5-51.5); MEAN CORPUSCULAR HGB CONC 34 g/dL (32.5-36.3); MONOCYTES # (AUTO) 0.6 K/uL (0.1-1.30); MONOCYTES % (AUTO) 9.4 % (0.0-11.0); NEUTROPHILS # (AUTO) 2.7 K/uL (1.8-8.9); NEUTROPHILS % (AUTO) 44.1 % (38.5-71.5); PLATELET COUNT (AUTO) 166 K/uL (152-348); RED BLOOD CELL COUNT(AUTO) 4.24 MIL/uL (4.06-5.63); RED CELL DISTRIBUTION WIDTH 13.7 % (12.1-16.2); WHITE BLOOD COUNT (AUTO) 6.2 K/uL (3.6-10.2)
[2023-07-15 13:31] LABS: CALCIUM 9.1 mg/dL (8.5-10.1); CARBON DIOXIDE 28 mmol/L (21-32); CHLORIDE 105 mmol/L (98-107); CREATININE 0.9 mg/dL (0.6-1.3); GLUCOSE 143 mg/dL (74-106); POTASSIUM 4.3 mmol/L (3.5-5.1); SODIUM SERUM 141 mmol/L (136-145); UREA NITROGEN, BLOOD 12 mg/dL (7-18)
[2023-07-15 13:38] LABS: DIFFERENTIAL COMMENT 1
[2023-07-15 13:40] LABS: ALANINE AMINOTRANSFERASE 16 U/L (16-63); ALKALINE PHOSPHATASE 60 U/L (50-136); ASPARTATE AMINOTRANSFERASE 8 U/L (15-37); BILIRUBIN,DIRECT 0.1 mg/dL (0.0-0.2); BILIRUBIN,TOTAL 0.2 mg/dL (0.2-1.0); TOTAL PROTEIN, SERUM 6.7 g/dL (6.4-8.2)
[2023-07-15 13:53] LABS: ACETAMINOPHEN < 2.0 ug/mL (10-30)
[2023-07-15 13:55] LABS: ALBUMIN 3.3 g/dL (3.4-5.0)
[2023-07-15 14:00] LABS: ETHANOL < 3 MG/DL (0-10)
[2023-07-15 14:26] LABS: *BILIRUBIN,URIN NEGATIVE (NEGATIVE); *BLOOD, URINE NEGATIVE (NEGATIVE); *CLARITY,URINE CLEAR (CLEAR); *COLOR,URINE YELLOW (YELLOW); *KETONES,URINE NEGATIVE (NEGATIVE); *PROTEIN,URINE NEGATIVE (NEGATIVE); *UROBILINOGEN,URINE 0.2 E.U./dl (NORMAL); LEUKOCYTE ESTERASE ,URINE NEGATIVE (NEGATIVE); NITRITE, URINE NEGATIVE (NEGATIVE); UGLUCOSE NEGATIVE (NEGATIVE)
[2023-07-15 14:38] LABS: *AMPHETAMINE, URINE NEGATIVE (NEGATIVE); *BARBITURATE, URINE NEGATIVE (NEGATIVE); *BENZODIAZEPINE, URINE NEGATIVE (NEGATIVE); *CANNABINOID, URINE NEGATIVE (NEGATIVE); *COCCAINE, URINE NEGATIVE (NEGATIVE); *OPIATE, URINE NEGATIVE (NEGATIVE); *PHENCYCLIDINE SCREEN,URINE NEGATIVE (NEGATIVE); FENTANYL, URINE NEGATIVE (NEGATIVE)
[2023-07-15 16:54] VITALS: BP 116/75; TEMP 98.1; O2SAT 98
[2023-07-15] MEDS: BLOOD SUGAR DIAGNOSTIC 1 EACH STRIP VI ONE (17:15)
[2023-07-15] MEDS ORDERED: BLOOD SUGAR DIAGNOSTIC 1 EACH STRIP VI ONE (17:15)
[2023-07-15] MEDS ORDERED: MAGNESIUM HYDROXIDE 30 ML LIQUID UDC PO PRN (17:15)
[2023-07-15] MEDS ORDERED: MAG HYDROX/AL HYDROX/SIMETH 30 ML LIQUID UDC PO PRN (17:15)
[2023-07-15] MEDS: OLANZAPINE 10 MG VIAL IM STA (18:59)
[2023-07-15 19:53] VITALS: BP 126/76; TEMP 98.1; O2SAT 98
[2023-07-15] MEDS: LORAZEPAM 1 MG TABLET PO PRN (20:00)
[2023-07-16 08:43] VITALS: BP 136/62; TEMP 97.6; O2SAT 99
[2023-07-16 08:46] LABS: ALBUMIN 3.4 g/dL (3.4-5.0); BILIRUBIN,TOTAL 0.3 mg/dL (0.2-1.0); CALCIUM 9.4 mg/dL (8.5-10.1); CREATININE 0.9 mg/dL (0.6-1.3); POTASSIUM 4.7 mmol/L (3.5-5.1); TOTAL PROTEIN, SERUM 6.9 g/dL (6.4-8.2)
[2023-07-16] MEDS: DIVALPROEX 500 MG TABLET.DR PO SCH (09:15)
[2023-07-16] MEDS: BENZTROPINE MESYLATE 1 MG TABLET PO SCH (09:15)
[2023-07-16] MEDS: risperiDONE 2 MG TABLET PO SCH (09:15)
[2023-07-16] MEDS ORDERED: DEXTROSE 50% 50 ML DISP.SYRIN IV PRN (13:00)
[2023-07-16] MEDS ORDERED: Medication Not On Formulary EA (Docusate Sodium 100 MG) PO PRN (13:00)
[2023-07-16] MEDS: OLANZAPINE 10 MG VIAL IM STA (13:46)
[2023-07-16 15:52] VITALS: BP 137/72; TEMP 97.8; O2SAT 98
[2023-07-16] MEDS: FUROSEMIDE 20 MG TABLET PO SCH (16:28)
[2023-07-16] MEDS: BLOOD SUGAR DIAGNOSTIC 1 EACH STRIP VI SCH (16:29)
[2023-07-16] MEDS ORDERED: Medication Not On Formulary EA (Metformin Hcl 1,000 MG) PO SCH (17:00)
[2023-07-16] MEDS: METFORMIN HCL 500 MG TABLET PO SCH (17:02)
[2023-07-16] MEDS: GLIMEPIRIDE 4 MG TABLET PO SCH (18:02)
[2023-07-16 20:21] VITALS: BP 101/53; TEMP 98.1; O2SAT 97
[2023-07-16] MEDS: ATORVASTATIN 20 MG TABLET PO SCH (20:31)
[2023-07-16] MEDS: DOCUSATE SODIUM 100 MG CAPSULE PO SCH (20:31)
[2023-07-16] MEDS ORDERED: ATORVASTATIN 40 MG TABLET PO SCH (21:00)
[2023-07-16] MEDS ORDERED: DIVALPROEX 500 MG TABLET.DR PO SCH (21:00)
[2023-07-16] MEDS: ZOLPIDEM 5 MG TABLET PO PRN (21:29)
[2023-07-17] MEDS: LEVOTHYROXINE SODIUM 88 MCG TABLET PO SCH (06:17)
[2023-07-17 07:58] VITALS: BP 134/52; TEMP 98.2; O2SAT 98
[2023-07-17] MEDS: ENALAPRIL 5 MG TABLET PO SCH (08:58)
[2023-07-17] MEDS: ALLOPURINOL 300 MG TABLET PO SCH (08:58)
[2023-07-17] MEDS: SPIRONOLACTONE 25 MG TABLET PO SCH (08:59)
[2023-07-17] MEDS ORDERED: ARIPIPRAZOLE 10 MG TABLET PO SCH (09:00)
[2023-07-17] MEDS ORDERED: MIRALAX 17 GM POWD.PACK PO SCH (09:00)
[2023-07-17] MEDS ORDERED: Cholecalciferol (Vitamin D3) (Vitamin D3) 1 CAP) PO SCH (09:00)
[2023-07-17 15:16] VITALS: BP 120/65; TEMP 98; O2SAT 98
[2023-07-17 20:00] VITALS: BP 123/59; TEMP 97.6; O2SAT 99
[2023-07-17] MEDS: risperiDONE 2 MG TABLET PO SCH (21:58)
[2023-07-18] MEDS: INSULIN GLARGINE,HUM 300 UNITS/3 ML CARTRIDGE SQ SCH (09:00)
[2023-07-18 10:32] VITALS: BP 122/60; TEMP 98; O2SAT 99
[2023-07-18] MEDS: INSULIN REGULAR, HUMAN 300 UNIT/3 ML VIAL SQ PRN (11:55)
[2023-07-18 15:37] VITALS: BP 116/63; TEMP 98.2; O2SAT 98
[2023-07-18 20:00] VITALS: BP 105/53; TEMP 97.7; O2SAT 96
[2023-07-18] MEDS: TEMAZEPAM 7.5 MG CAPSULE PO PRN (21:56)
[2023-07-19 08:01] VITALS: BP 116/57; TEMP 98.2; O2SAT 96
[2023-07-19 15:42] VITALS: BP 123/73; TEMP 98; O2SAT 98
[2023-07-19 20:00] VITALS: BP 123/67; TEMP 97.8; O2SAT 100
[2023-07-20 08:09] VITALS: BP 136/64; TEMP 97.7; O2SAT 98
[2023-07-20 15:07] LABS: *BILIRUBIN,URIN NEGATIVE (NEGATIVE); *BLOOD, URINE NEGATIVE (NEGATIVE); *CLARITY,URINE CLEAR (CLEAR); *COLOR,URINE YELLOW (YELLOW); *KETONES,URINE TRACE (NEGATIVE); *PROTEIN,URINE NEGATIVE (NEGATIVE); *UROBILINOGEN,URINE 0.2 E.U./dl (NORMAL); LEUKOCYTE ESTERASE ,URINE NEGATIVE (NEGATIVE); NITRITE, URINE NEGATIVE (NEGATIVE); UGLUCOSE NEGATIVE (NEGATIVE)
[2023-07-20 16:06] VITALS: BP 101/56; TEMP 97.8; O2SAT 98
[2023-07-20 20:33] VITALS: BP 126/61; TEMP 98; O2SAT 98
[2023-07-20] MEDS: risperiDONE 2 MG TABLET PO SCH (20:34)
[2023-07-21 08:15] VITALS: BP 96/57; TEMP 98.2; O2SAT 98
[2023-07-21 16:06] VITALS: BP 146/73; TEMP 98.2; O2SAT 97
[2023-07-21 19:50] VITALS: BP 121/56; TEMP 98.3; O2SAT 98
[2023-07-22 07:51] VITALS: BP 136/56; TEMP 98.1; O2SAT 98
[2023-07-22 16:17] VITALS: BP 140/60; TEMP 98; O2SAT 98
[2023-07-22 19:57] VITALS: BP 136/50; TEMP 98.1; O2SAT 97
[2023-07-23 08:30] VITALS: BP 110/48; TEMP 98.6; O2SAT 96
[2023-07-23 15:16] VITALS: BP 114/46; TEMP 97.4; O2SAT 100
[2023-07-23 20:10] VITALS: BP 113/50; TEMP 98.1; O2SAT 98
[2023-07-24 07:57] VITALS: BP 114/69; TEMP 98; O2SAT 98
[2023-07-24] MEDS: ACETAMINOPHEN 325 MG TABLET PO PRN (08:23)
[2023-07-24] MEDS: NICOTINE 7 MG/24HR PATCH TD SCH (15:05)
[2023-07-24 15:20] VITALS: BP 119/58; TEMP 98; O2SAT 97
[2023-07-24 20:00] VITALS: BP 107/60; TEMP 98; O2SAT 97
[2023-07-24] MEDS: INSULIN REGULAR, HUMAN 300 UNITS/3 ML VIAL SQ PRN (20:22)
[2023-07-25 08:06] VITALS: BP 119/56; TEMP 98.6; O2SAT 97
[2023-07-25] MEDS: DIVALPROEX 500 MG TABLET.DR PO SCH ×2 (10:01→21:11)
[2023-07-25 16:31] VITALS: BP 119/53; TEMP 98.8; O2SAT 98
[2023-07-25 20:00] VITALS: BP 137/60; TEMP 97.4
[2023-07-25] MEDS ORDERED: DIVALPROEX 250 MG TABLET.DR PO SCH (21:00)
[2023-07-26 08:11] VITALS: BP 125/70; TEMP 98; O2SAT 99
[2023-07-26 09:53] VITALS: BP 125/70
== END 2023-07-26 13:08 | DRG 885 ==
LOC: ER 11:55 → GPS 14:53
PROVIDERS: ADMIT Psychiatry & Neurology Psychiatry; ATTEND Student in an Organized Health Care Education/Training Program
DX: F25.0 Schizoaffective disorder, bipolar type (principal); E11.65 Type 2 diabetes mellitus with hyperglycemia; E44.1 Mild protein-calorie malnutrition; I50.32 Chronic diastolic (congestive) heart failure; F03.911 Unspecified dementia, unspecified severity, with agitation; E11.9 Type 2 diabetes mellitus without complications; G40.909 Epilepsy, unspecified, not intractable, without status epilepticus; F17.210 Nicotine dependence, cigarettes, uncomplicated; E03.9 Hypothyroidism, unspecified; E78.5 Hyperlipidemia, unspecified; J44.9 Chronic obstructive pulmonary disease, unspecified; Z79.4 Long term (current) use of insulin; Z79.899 Other long term (current) drug therapy; Z79.84 Long term (current) use of oral hypoglycemic drugs; R13.10 Dysphagia, unspecified
CPT/HCPCS: 36415; 71045; 80164; 84443; 84484; 85025; 93005; 94640; A9150; G0480; J1815; J2358

== ENCOUNTER 2023-07-29 12:27 | Emergency (ER) | payer MEDICARE, OTHER ==
[~2023-07-29] VITALS: Ht 177.8 cm; Wt 86.2 kg
[~2023-07-29 12:27] MED LIST changes: -ALBU6.7H9 IH; -BENZ1TAB7 PO; -CHOL100045 PO; -DIVA-78 PO; -EMPA10TA PO; -EMPA25TA PO; +GLUC1KIT IM; +INSU100V28 SQ; -POLY17PO4 PO
[2023-07-29] MEDS ORDERED: DIVA500T2 PO (12:56)
[2023-07-29] MEDS ORDERED: BENZ1TAB7 PO (12:56)
[2023-07-29] MEDS ORDERED: INSU100C (12:56)
[2023-07-29] MEDS ORDERED: MELA5TAB21 PO (12:56)
[2023-07-29] MEDS ORDERED: RISP1TAB97 PO (12:56)
[2023-07-29] MEDS ORDERED: RISP3TAB61 PO (12:56)
[2023-07-29] MEDS ORDERED: ACET325T53 PO (12:56)
[2023-07-29 13:18] LABS: BASOPHILS % (AUTO) 0.2 % (0.0-2.0); EOSINOPHILS # (AUTO) 0.3 K/uL (0.0-0.7); EOSINOPHILS % (AUTO) 4.7 % (0.0-7.0); HEMATOCRIT 37.4 % (36.7-47.1); HEMOGLOBIN 12.7 g/dL (12.5-16.3); LYMPHOCYTES # (AUTO) 0.4 K/uL (0.8-4.8); LYMPHOCYTES % (AUTO) 7.3 % (20.5-51.5); MEAN CORPUSCULAR HGB CONC 34 g/dL (32.5-36.3); MEAN CORPUSCULAR VOLUME 88.3 fL (73.0-96.2); MONOCYTES # (AUTO) 0.4 K/uL (0.1-1.30); MONOCYTES % (AUTO) 7.3 % (0.0-11.0); NEUTROPHILS # (AUTO) 4.3 K/uL (1.8-8.9); NEUTROPHILS % (AUTO) 80.5 % (38.5-71.5); PLATELET COUNT (AUTO) 135 K/uL (152-348); RED BLOOD CELL COUNT(AUTO) 4.24 MIL/uL (4.06-5.63); RED CELL DISTRIBUTION WIDTH 14.6 % (12.1-16.2); WHITE BLOOD COUNT (AUTO) 5.3 K/uL (3.6-10.2)
[2023-07-29 13:19] LABS: DIFFERENTIAL COMMENT 1
[2023-07-29 13:40] LABS: CALCIUM 8.9 mg/dL (8.5-10.1); CARBON DIOXIDE 26 mmol/L (21-32); CHLORIDE 103 mmol/L (98-107); CREATININE 1.2 mg/dL (0.6-1.3); GLUCOSE 136 mg/dL (74-106); POTASSIUM 3.8 mmol/L (3.5-5.1); SODIUM SERUM 139 mmol/L (136-145); UREA NITROGEN, BLOOD 13 mg/dL (7-18)
[2023-07-29 13:45] LABS: ACETAMINOPHEN < 10.0 ug/mL (10-30); ALANINE AMINOTRANSFERASE 29 U/L (16-63); ALBUMIN 3.5 g/dL (3.4-5.0); ALKALINE PHOSPHATASE 66 U/L (50-136); ASPARTATE AMINOTRANSFERASE 17 U/L (15-37); BILIRUBIN,DIRECT 0.1 mg/dL (0.0-0.2); BILIRUBIN,TOTAL 0.3 mg/dL (0.2-1.0)
[2023-07-29 13:46] LABS: *BILIRUBIN,URIN NEGATIVE (NEGATIVE); *BLOOD, URINE NEGATIVE (NEGATIVE); *CLARITY,URINE CLEAR (CLEAR); *COLOR,URINE YELLOW (YELLOW); *KETONES,URINE TRACE (NEGATIVE); *PROTEIN,URINE NEGATIVE (NEGATIVE); LEUKOCYTE ESTERASE ,URINE NEGATIVE (NEGATIVE); NITRITE, URINE NEGATIVE (NEGATIVE); UGLUCOSE NEGATIVE (NEGATIVE)
[2023-07-29 13:59] LABS: *AMPHETAMINE, URINE NEGATIVE (NEGATIVE); *BARBITURATE, URINE NEGATIVE (NEGATIVE); *BENZODIAZEPINE, URINE NEGATIVE (NEGATIVE); *CANNABINOID, URINE NEGATIVE (NEGATIVE); *COCCAINE, URINE NEGATIVE (NEGATIVE); *OPIATE, URINE NEGATIVE (NEGATIVE); *PHENCYCLIDINE SCREEN,URINE NEGATIVE (NEGATIVE); FENTANYL, URINE NEGATIVE (NEGATIVE)
[2023-07-29 14:03] LABS: BACTERIA,URINE FEW /HPF (NONE SEEN); RBC,URINE 0-3 /HPF (0-3); SQUAMOUS EPITHELIAL CELL,UR FEW /HPF (NONE SEEN); WBC,URINE 0-3 /HPF (0-3)
[2023-07-29 14:04] LABS: ETHANOL < 3 MG/DL (0-10)
[2023-07-29 15:39] VITALS: BP 116/66; O2SAT 98
== END 2023-07-29 15:08 | disposition left against medical advice (07) ==
LOC: ER 12:31
DX: U07.1 COVID-19 (principal); F29 Unspecified psychosis not due to a substance or known physiological condition; G40.909 Epilepsy, unspecified, not intractable, without status epilepticus; I50.9 Heart failure, unspecified; J44.9 Chronic obstructive pulmonary disease, unspecified; E11.9 Type 2 diabetes mellitus without complications; F20.9 Schizophrenia, unspecified; E03.9 Hypothyroidism, unspecified; Z79.4 Long term (current) use of insulin; Z79.899 Other long term (current) drug therapy
CPT/HCPCS: 36415; 85025; 93005; A4606; A4663; G0480